=== PATIENT | male | born 1970 | race Caucasian/White ===

== ENCOUNTER 2021-12-12 22:39 | Inpatient (IN) ==
[2021-12-12] MEDS ORDERED: ONDANSETRON INJ 2 MG/ML 2 ML VIAL IV STA (22:54)
[2021-12-12] MEDS ORDERED: FAMOTIDINE 20MG IV PUSH 20 MG/5 ML SYR IV STA (22:54)
[2021-12-12] MEDS ORDERED: GI COCKTAIL ED USE PO ONE (22:54)
[2021-12-12] MEDS ORDERED: SODIUM CHLORIDE 0.9% 1000ML 1,000 ML IV SCH (23:00)
[2021-12-12 23:15] LABS: Basophils # (auto) 0.03 K/uL (0-0.2); Basophils % (auto) 0.2 %; Eosinophils # (auto) 0.18 K/uL (0-0.5); Eosinophils % (auto) 1.5 %; Hemoglobin 16.1 g/dL (14.0-18.0); Immature Granulocytes # (auto) 0.02 K/uL (0.00-0.02); Immature Granulocytes % (auto) 0.2 %; Lymphocytes # (auto) 1.83 K/uL (1.2-3.4); Lymphocytes % (auto) 15.2 %; Mean Corpuscular Hemoglobin 31.8 pg (25-34); Mean Corpuscular Volume 90.7 fL (80-100); Mean Platelet Volume 10.4 fL (7.4-10.4); Monocytes # (auto) 1.33 K/uL (0.11-0.59); Neutrophils # (auto) 8.68 K/uL (1.4-6.5); Neutrophils % (auto) 71.9 %; Platelet Count 166 K/uL (130-400); RDW Coefficient of Variation 12.7 % (11.5-14.5); RDW Standard Deviation 42.1 fL (36.4-46.3); Red Blood Count 5.07 M/uL (4.7-6.1); White Blood Count 12.07 K/uL (4.8-10.8)
[2021-12-12] MEDS: MoRPHine SULFATE 4 MG/ML 1 ML CARP\\VIAL IV PRN (23:24)
[2021-12-12 23:33] LABS: INR 1.1 (0.9-1.1); Partial Thromboplastin Ratio 0.8; Partial Thromboplastin Time 23.3 Seconds (21.0-31.0); Prothrombin Time 11.4 Seconds (9.0-12.0)
[2021-12-12 23:55] LABS: Troponin I High Sensitivity 5.5 pg/ml (0-20)
[2021-12-12 23:58] LABS: BUN Creatinine Ratio 15.2 (10-20); Calcium 9.9 mg/dl (8.5-10.1); Creatinine Clr Calc Pharmacy 94.1 ml/min; Est GFR (African American) 87.7 ml/min; Est GFR (Non-African American) 75.7 ml/min
[2021-12-13 00:12] LABS: Albumin Globulin Ratio 1.4 (0.9-2); Albumin Level 4.6 gm/dl (3.4-5.0); Bilirubin,Total 0.9 mg/dl (0.2-1.0); Globulin 3.3 gm/dl (2.5-4.0); Magnesium 1.9 mg/dl (1.7-2.4); Total Protein 7.9 gm/dl (6.0-8.3)
[2021-12-13] MEDS: MoRPHine SULFATE 4 MG/ML 1 ML CARP\\VIAL IV PRN (00:28)
--- NOTE | 2021-12-13 01:30 | History & Physical Report ---
Date of Service December 13, 2021 Assessment & Plan (1) Acute pancreatitis: Plan: Dougie Croft is a 51yo male with PMHx significant for tobacco use disorder (~40 pack years, current), severe alcohol use disorder and vitamin D deficiency who presented to [facility] ED on 12/13 for worsening epigastric abdominal pain x3 days; will be admitted to the floor for acute pancreatitis. Acute Pancreatitis Lipase ~4000; CT A/P with evidence of mild pancreatitis per [facility] report. Given lack of clarity about current alcohol use, alcohol-induced pancreatitis is certainly a possibility. Also may be due to increased triglycerides. Appears to be first known episode based on patient's history. - received 1L NSS bolus in the ED; continue with LR @200cc/hr - several doses of Morphine 2mg IV without improvement in severe pain - will give Dilaudid 0.5mg IV x1 now - graduated pain regimen: Tylenol 1g IV Q8H (moderate pain); Dilaudid 0.5mg IV Q6H (severe pain) - check lipid profile in the AM, as well as A1c (given no PCP visit for several years and recent weight gain) Severe Alcohol Use Disorder Previously reports use of >12 pack beer per week as well as undefined amount of Whiskey. Initially reported quitting 3 years ago but later on in the interview mentioned that he had 1 beer yesterday. Then reported 1 beer per month of alcohol intake. Unclear of current alcohol use. Mildly hypertensive and borderline tachycardic, likely due to severe pain but may also be component of withdrawal. - BAL <10 on admission - AWSS protocol with IV Ativan - IV Thiamine/Folate - counseled on cessation - recommend close PCP f/u after discharge H/o Multisubstance Abuse/Overdose Denies current use. - UDS pending FEN/GI: NPO DVT Prophylaxis: Lovenox 40mg SQ QAM Code Status: full code Disposition: med/surg (2) Severe alcohol use disorder: (3) Cocaine abuse: History of Present Illness Chief Complaint: abdominal pain Primary Care Provider: Richy Mcgill DO Dougie Croft is a 51yo male with PMHx significant for tobacco use disorder (~40 pack years, current), severe alcohol use disorder and vitamin D deficiency who presented to [facility] ED on 12/13 for worsening epigastric abdominal pain radiating to upper back x3 days, with associated nausea. Patient denies previous episodes of similar symptoms in the past. Does admit to occasional heartburn which usually responds to TUMS or Pepcid. Of note patient has a history of severe alcohol use disorder although he reports that he "really cut down" ~3 years ago. Does admit to having 1 beer yesterday, although usually has only 1 beer per month nowadays. Also has previous history of cocaine and meth abuse but denies any drug use currently. Has a 40 pack year smoking history and currently smokes 1 pack per day. Does not take any medications besides for occasional Pepcid. Of note he has gained considerable weight over last 1-2 years and frequently has red meat; he did have a considerable amount of Bologna the day before his symptoms started. In the ED patient was mildly hypertensive and borderline tachycardic. Labs significant for elevated lipase 4661 and elevated amylase 1295, as well as WBC 12.07. BAL negative and no transaminitis. CT A/P with evidence of mild acute pancreatitis per [facility] report. In ED patient was given 1L NSS bolus as well as GI cocktail x1, Zofran 4mg IV x1 and Pepcid 20mg IV x1. Pain is still severe at 10/10 during my interview with the patient. Allergies Allergy/AdvReac Type Severity Reaction Status Date / Time isopropyl alcohol Allergy Unknown Unknown Verified 12/12/21 23:21 Home Medications Medication Instructions Recorded Confirmed Type No Known Home Medications 12/12/21 12/12/21 History Past Med/Surg History Medical History Cocaine abuse Polysubstance overdose Smoker Surgical History S/P appendectomy Social History Smoking Status: Heavy tobacco smoker Tobacco Type: Cigarettes Second Hand Exposure: No; Do You Dip or Chew Tobacco: No; Tobacco Cessation Education Requested by Patient: No Hx Alcohol Use: No Hx Substance Use: Yes Substance Use Type Other:: alcohol Preferred Language: [place] Tennis Professional Required: No Beliefs That Will Affect Care: None Current Living Situation: Spouse and Family Other Information That Helps Us Care for You: No Feels Safe at Home: Yes Safety Concerns: Feels Safe At This Time Review of Systems Review of Systems: All systems reviewed & are unremarkable except as noted in HPI & below Physical Exam Physical Exam: General: A&Ox3. In mild acute distress and grabbing at upper abdomen due to pain. HEENT: Atraumatic, normocephalic. Pulm: CTAB A&P. -wheezes, -rales, -rhonchi. Symmetrical chest rise. No increase work of breathing. No respiratory distress. Cardiac: RRR, -mrg. Radial pulses intact and symmetrical. Abdominal: soft, protuberant, significant epigastric tenderness without rebound or guarding. Negative [place] sign. Back: Negative House-Deras sign Skin: warm, dry, no rash Results & Data Results & Data ([facility]) Vital Signs (Past 12 Hours) Vital Signs Temp Pulse Resp BP Pulse Ox 12/12/21 22:54 96 12/12/21 22:40 36.8 C 97 H 22 153/105 H 96 Code Status & VTE Plan Code Status full code - discussed with patient Supervising Physician Co-Signing Physician Notes Patient seen and examined, chart reviewed, case discussed with Dr. Stacy and I agree with the assessment and plan as above. In brief, patient is a 51yo male presenting with severe epigastric abdominal pain x 3 days with nausea. Found to have elevated Amylase and Lipase, CT of the abdomen suspect for acute pancreatitis On exam he is afebrile, HD stable, uncomfortable secondary to abdominal pain but otherwise in NAD Skin - warm, dry, intact, no rashes/lesios HEENT - NC/AT, PERRL, MMM Heart - +BS, soft, NT/ND Lungs - CTA Abd - +BS, soft, tender in epigastrium and upper abdomen with voluntary guarding Ext - warm, well perfused Labs and images reviewed Assessment/plan Acute pancreatitis - no gallstones present on imaging. Patient denies heavy drinking but has history of frequent EtOH use in the past. Calium normal -Check triglycerides -IVF, pain management -Monitor for EtOH withdrawal symptoms -Remainder as above Resident Activity Tracking Resident Involvement: Resident Care Provided Care Provided: [facility] Medicine
[2021-12-13] MEDS ORDERED: HYDROmorphone INJ 0.5 MG/0.5 ML SYR IV STA ×3 (01:54→22:42)
--- NOTE | 2021-12-13 01:57 | Emergency Department Note ---
History of Present Illness General Chief complaint: Abdominal Pain Stated complaint: UPPER ABDOM PAIN Time Seen by Provider: 12/12/21 22:45 History of Present Illness Maximum Pain Intensity: 8 This is a 51-year-old male presenting to the emergency department for evaluation of epigastric abdominal pain the past 1 to 2 days. The patient states the pain is very sharp and will occasionally radiate into his back. He rates the pain an 8/10. He has not been able to eat or drink comfortably due to his symptoms. He is nauseated without vomiting. The patient does not typically follow with a primary care physician. He does have a past history of cocaine and methamphetamine abuse, as well as chronic alcohol use. The patient's discomfort does not seem to improve or worsen with position. He does have past surgical history of appendectomy years ago. Home Medications Medication Instructions Recorded Confirmed Type No Known Home Medications 12/12/21 12/12/21 History Allergies Allergy/AdvReac Type Severity Reaction Status Date / Time isopropyl alcohol Allergy Unknown Unknown Verified 12/12/21 23:21 Past Med/Surg History Medical History Cocaine abuse Polysubstance overdose Smoker Surgical History S/P appendectomy Social History Smoking Status: Current every day smoker Tobacco Type: Cigarettes Preferred Language: French Feels Safe at Home: Yes Review of Systems A total of 10 systems reviewed and were otherwise negative Physical Exam Vital Signs Vital Signs - 24 hr 12/12/21 22:40 12/12/21 22:54 Temperature 36.8 C Temperature Source Temporal Artery Scan Pulse Rate 97 H Respiratory Rate 22 Respiratory Effort / Characteristics Non-Labored Spontaneous Respiratory Depth Normal Blood Pressure 153/105 H Blood Pressure Mean 121 Pulse Oximetry 96 96 Oxygen Delivery Method Room Air Room Air Sepsis New/Unexplained Change in Mental Status N/A Sepsis Action Taken by Nursing No Action Required VITALS: Vitals are noted on the nurse's note and reviewed by myself. Vital signs stable. GENERAL: Well-developed, well-nourished, white male who is in moderate discomfort secondary to his stated complaint. He has having difficulty getting comfort in the ER bed. He is overall cooperative. HEAD: Normocephalic atraumatic. HEART: Regular rate and rhythm without murmurs gallops or rubs. LUNGS: Clear to auscultation bilaterally without wheezes, rales or rhonchi. No retractions or accessory muscle use. ABDOMEN: Positive normal bowel sounds x 4. Soft with epigastric and left upper quadrant tenderness. No rebound or guarding. No CVA tenderness. MUSCULOSKELETAL: No muscle atrophy, erythema, or edema noted. Full range of motion in all extremities. NEURO: Patient was alert and oriented to person place and time. CN II through XII grossly intact. Course Administered Medications Morphine Sulfate (Morphine Sulfate 4 Mg/Ml 1 Ml Carp\Vial) 4 mg IV Q30M PRN PRN Reason: Pain Stop: 12/26/21 22:53 Last Admin: 12/13/21 00:28 Dose: 4 mg Documented by: [id number] Admin: 12/12/21 23:24 Dose: 4 mg Documented by: [id number] Discontinued Medications Al Hydrox/Mg Hydrox/Simethicone (Gi Cocktail Ed Use) 1 dose PO ONE ONE Stop: 12/12/21 22:55 Last Admin: 12/12/21 23:24 Dose: 1 dose Documented by: [id number] Sodium Chloride (Nss 1000ml) 1,000 mls @ 999 mls/hr IV .Q1H1M RENAE Stop: 12/13/21 00:00 Last Infusion: 12/13/21 00:43 Dose: 0 mls/hr Documented by: [id number] Admin: 12/12/21 23:23 Dose: 999 mls/hr Documented by: [id number] Famotidine (Pepcid 20mg Iv Push) 20 mg in 5 mls @ 2.5 mls/min IV NOW STA Stop: 12/12/21 22:55 Last Admin: 12/12/21 23:24 Dose: 2.5 mls/min Documented by: [id number] Ondansetron HCl (Ondansetron Inj 2 Mg/Ml 2 Ml Vial) 4 mg IV NOW STA Stop: 12/12/21 22:55 Last Admin: 12/12/21 23:24 Dose: 4 mg Documented by: [id number] Medical Decision Making Differential Diagnosis Differential diagnosis: Etiologies such as biliary colic, cholecystitis, hepatitis, pancreatitis, cardiac disease, pancreatitis, gastritis, peptic ulcer disease, appendicitis, cystitis, diverticulitis, mesenteric ischemia, inflammatory bowel disease, ileus, bowel obstruction, testicular/adnexal torsion, aortic pathology, shingles, as well as others were considered Laboratory Data Result diagrams: 12/12/21 23:05 12/12/21 23:05 Lab Results 12/12/21 12/12/21 12/12/21 Range/Units 23:05 23:05 23:05 WBC 12.07 H (4.8-10.8) K/uL RBC 5.07 (4.7-6.1) M/uL Hgb 16.1 (14.0-18.0) g/dL Hct 46.0 (42-52) % MCV 90.7 (80-100) fL MCH 31.8 (25-34) pg MCHC 35.0 (32-36) g/dL RDW Std Deviation 42.1 (36.4-46.3) fL RDW Coeff of Yennifer 12.7 (11.5-14.5) % Plt Count 166 (130-400) K/uL MPV 10.4 (7.4-10.4) fL Immature Gran % (Auto) 0.2 % Neut % (Auto) 71.9 % Lymph % (Auto) 15.2 % [place] % (Auto) 11.0 % Eos % (Auto) 1.5 % Baso % (Auto) 0.2 % Neut # (Auto) 8.68 H (1.4-6.5) K/uL Lymph # (Auto) 1.83 (1.2-3.4) K/uL [place] # (Auto) 1.33 H (0.11-0.59) K/uL Eos # (Auto) 0.18 (0-0.5) K/uL Baso # (Auto) 0.03 (0-0.2) K/uL Immature Gran # (Auto) 0.02 (0.00-0.02) K/uL PT 11.4 (9.0-12.0) Seconds INR 1.1 (0.9-1.1) APTT 23.3 (21.0-31.0) Seconds PTT Ratio 0.8 Sodium 138 (136-145) mmol/L Potassium 4.0 (3.5-5.1) mmol/L Chloride 104 (98-107) mmol/L Carbon Dioxide 25 (21-32) mmol/L Anion Gap 9 (3-11) BUN 17 (6-23) mg/dl Creatinine 1.12 (0.6-1.4) mg/dl Est Cr Clr Drug Dosing 94.1 ml/min Est GFR ( Amer) 87.7 ml/min Est GFR (Non-Af Amer) 75.7 ml/min BUN/Creatinine Ratio 15.2 (10-20) Glucose 128 H (70-99(Fasting)) mg/dl Calcium 9.9 (8.5-10.1) mg/dl Magnesium 1.9 (1.7-2.4) mg/dl Total Bilirubin 0.9 (0.2-1.0) mg/dl AST 29 (13-39) U/L ALT 37 (7-52) U/L Alkaline Phosphatase 71 (34-104) U/L Troponin I High Sens 5.5 (0-20) pg/ml Total Protein 7.9 (6.0-8.3) gm/dl Albumin 4.6 (3.4-5.0) gm/dl Globulin 3.3 (2.5-4.0) gm/dl Albumin/Globulin Ratio 1.4 (0.9-2) Amylase 1295 H (25-115) U/L Lipase 4661 H (11-82) U/L Ethyl Alcohol mg/dL (<10.0) mg/dl SARS-CoV-2, RNA, NAAT (NEGATIVE) 12/12/21 12/13/21 Range/Units 23:05 00:32 WBC (4.8-10.8) K/uL RBC (4.7-6.1) M/uL Hgb (14.0-18.0) g/dL Hct (42-52) % MCV (80-100) fL MCH (25-34) pg MCHC (32-36) g/dL RDW Std Deviation (36.4-46.3) fL RDW Coeff of Yennifer (11.5-14.5) % Plt Count (130-400) K/uL MPV (7.4-10.4) fL Immature Gran % (Auto) % Neut % (Auto) % Lymph % (Auto) % [place] % (Auto) % Eos % (Auto) % Baso % (Auto) % Neut # (Auto) (1.4-6.5) K/uL Lymph # (Auto) (1.2-3.4) K/uL [place] # (Auto) (0.11-0.59) K/uL Eos # (Auto) (0-0.5) K/uL Baso # (Auto) (0-0.2) K/uL Immature Gran # (Auto) (0.00-0.02) K/uL PT (9.0-12.0) Seconds INR (0.9-1.1) APTT (21.0-31.0) Seconds PTT Ratio Sodium (136-145) mmol/L Potassium (3.5-5.1) mmol/L Chloride (98-107) mmol/L Carbon Dioxide (21-32) mmol/L Anion Gap (3-11) BUN (6-23) mg/dl Creatinine (0.6-1.4) mg/dl Est Cr Clr Drug Dosing ml/min Est GFR ( Amer) ml/min Est GFR (Non-Af Amer) ml/min BUN/Creatinine Ratio (10-20) Glucose (70-99(Fasting)) mg/dl Calcium (8.5-10.1) mg/dl Magnesium (1.7-2.4) mg/dl Total Bilirubin (0.2-1.0) mg/dl AST (13-39) U/L ALT (7-52) U/L Alkaline Phosphatase (34-104) U/L Troponin I High Sens (0-20) pg/ml Total Protein (6.0-8.3) gm/dl Albumin (3.4-5.0) gm/dl Globulin (2.5-4.0) gm/dl Albumin/Globulin Ratio (0.9-2) Amylase (25-115) U/L Lipase (11-82) U/L Ethyl Alcohol mg/dL < 10.0 (<10.0) mg/dl SARS-CoV-2, RNA, NAAT NEGATIVE (NEGATIVE) Imaging Data Radiologist's Impression: Preliminary Findings Only See Final Report For Complete Findings CT ABDOMEN & PELVIS Without Contrast: Granuloma at the left lung base. Heart intact. Fatty liver. Gallbladder intact. Mild inflammatory changes around the pancreas. Spleen, adrenals and kidneys are intact. Bladder decompressed. Bowel loops intact. Appendix not seen. No adenopathy, free fluid or free air. Minimal atherosclerosis. No acute findings in the lungs. Impression: Mild acute pancreatitis. Radiologist:Hunter Chambers M.D. [facility] Narrative Physical exam and history were performed. Nursing notes, EMR, and Medication List were personally reviewed. Patient appears to have upper abdominal pain bringing him to the ER. He is quite tender and uncomfortable appearing on exam. IV access was established and labs were obtained. He was hydrated with normal saline and given IV morphine and IV Zofran for comfort. Patient sent to CT scan for further evaluation of his symptoms. Patient's blood work is as above and was reviewed. He does have a slightly elevated white count of 12,000. He does not have significant anemia or gross electrolyte imbalance. Troponin x1 is negative. His amylase is nearly 1300 and lipase is [address] scan was reviewed by myself and radiology also suggesting acute pancreatitis. His alcohol is negative. Urinalysis and drug abuse screen is pending at the time of this dictation. His COVID testing is negative. Patient did require multiple doses of IV morphine and continues to rate his pain very high. He does not seem well for discharge home. Case was discussed with the on-call [facility] hospitalist team who will evaluate patient here in the ER. Please see their dictation for further patient course, plan, and dispositio n. The chart was completed utilizing [employer] Speech Voice Recognition Software. Grammatical errors, random word insertions, pronoun errors, and incomplete sentences are an occasional consequence of this system due to software limitations, ambient noise, and hardware issues. Any formal questions or concerns about the content, text, or information contained within the body of this dictation should be directly addressed to the provider for clarification. . Impression & Plan Acute pancreatitis, Acute upper abdominal pain Discharge Plan Visit Data Chief Complaint: Abdominal Pain Stated Complaint: UPPER ABDOM PAIN ED Provider: Margarito Olivares ED Midlevel Provider: Nicholas Krishnan Discharge Problem: Acute pancreatitis, Acute upper abdominal pain Forms Stand Alone Forms: My [facility] [employer] Prescriptions Prescriptions: No Action No Known Home Medications RF: 0 Referrals Referrals: Richy Mcgill DO [Primary Care Provider] -
--- NOTE | 2021-12-13 02:04 | Billing Data ---
Date of Service December 13, 2021 Coding Level of Care Code 21121 Initial Inpt Care Lvl 2
[2021-12-13] MEDS ORDERED: HYDROmorphone INJ 0.5 MG/0.5 ML SYR ONE (02:06)
[2021-12-13] MEDS ORDERED: ACETAMINOPHEN 1000 MG/100 ML IV IV PRN (04:26)
[2021-12-13] MEDS ORDERED: LORazepam 2 MG/1 ML VIAL IV PRN (04:26)
[2021-12-13] MEDS: LACTATED RINGER'S 1,000 ML IV SCH ×4 (04:36→20:04)
[2021-12-13] MEDS: ACETAMINOPHEN 1,000 MG/100 ML VIAL IV PRN ×3 (05:06→23:05)
[2021-12-13] MEDS: HYDROmorphone INJ 0.5 MG/0.5 ML SYR IV PRN ×3 (06:01→18:17)
[2021-12-13 06:31] LABS: Basophils # (auto) 0.03 K/uL (0-0.2); Basophils % (auto) 0.3 %; Eosinophils # (auto) 0.09 K/uL (0-0.5); Eosinophils % (auto) 0.8 %; Hematocrit (blood only) 44.9 % (42-52); Hemoglobin 15.7 g/dL (14.0-18.0); Immature Granulocytes # (auto) 0.04 K/uL (0.00-0.02); Immature Granulocytes % (auto) 0.3 %; Lymphocytes # (auto) 1.21 K/uL (1.2-3.4); Lymphocytes % (auto) 10.5 %; Mean Corpuscular Volume 91.4 fL (80-100); Mean Platelet Volume 10.4 fL (7.4-10.4); Monocytes # (auto) 0.98 K/uL (0.11-0.59); Monocytes % (auto) 8.5 %; Neutrophils # (auto) 9.17 K/uL (1.4-6.5); Neutrophils % (auto) 79.6 %; Platelet Count 155 K/uL (130-400); RDW Coefficient of Variation 12.8 % (11.5-14.5); RDW Standard Deviation 42.5 fL (36.4-46.3); Red Blood Count 4.91 M/uL (4.7-6.1); White Blood Count 11.52 K/uL (4.8-10.8)
[2021-12-13 07:16] LABS: BUN Creatinine Ratio 16.7 (10-20); Calcium 9.3 mg/dl (8.5-10.1); Chol HDL Ratio 3.6 (0-5); Est GFR (African American) 121.1 ml/min; Est GFR (Non-African American) 104.5 ml/min; Magnesium 1.9 mg/dl (1.7-2.4)
[2021-12-13] MEDS: ENOXAPARIN INJ 40 MG/0.4 ML SYR SQ SCH (08:14)
[2021-12-13] MEDS: THIAMINE HCL 100 MG in SYRINGE 9 ML IV SCH (08:15)
[2021-12-13] MEDS: FOLIC ACID 1 MG TAB PO SCH (08:15)
[2021-12-13] MEDS: ONDANSETRON INJ 2 MG/ML 2 ML VIAL IV PRN (08:20)
[2021-12-13 08:38] LABS: Amphetamines+Metham, Urine Neg (Neg); Barbiturates, Urine Neg (Neg); Benzodiazepine, Urine Neg (Neg); Cocaine, Urine Neg (Neg); MDMA (Ecstacy), Urine Neg (Neg); Methadone, Urine Neg (Neg); Opiate, Urine Pos (Neg); Phencyclidine, Urine Neg (Neg)
--- NOTE | 2021-12-13 08:43 | CT Scan Report ---
CT abd pelvis wo con CLINICAL HISTORY: upper abd pain. no appdx. Reported nausea, vomiting and diarrhea for 3 days COMPARISON STUDY: No previous studies for comparison. CT DOSE: 989.91 mGy.cm TECHNIQUE: Standard CT of the Abdomen and Pelvis was performed without IV contrast. The patient did not receive oral contrast. A dose lowering technique was utilized adhering to the principles of IVET Santos. FINDINGS: Lung base: The lung bases are clear. There is a calcified granuloma the left lung base. Abdominal cavity: There is no evidence for abdominal mass, adenopathy or ascites. Liver: There is mild hepatomegaly with diffuse fatty infiltration of the liver.. Spleen: The spleen is homogeneous in attenuation on these limited noncontrast images. There is mild s plenomegaly. Pancreas: The pancreas is homogeneous in attenuation on these limited noncontrast images. However, th ere is mild peripancreatic inflammatory changes characteristic of mild acute pancreatitis. No peripan creatic fluid collections are seen. Gall Bladder: The gallbladder is well distended with no evidence for cholelithiasis, wall thickening or pericholecystic edema.. Adrenal glands: The adrenal glands are normal in size and attenuation on these limited noncontrast im ages. Kidneys: The kidneys are homogeneous in attenuation on these limited noncontrast images. There is no evidence for gross renal mass, calculus or hydronephrosis bilaterally. Bowel: The bowel loops are normally placed within the abdomen and pelvis without evidence for dilatat ion or obstruction. There is no evidence for mass lesion. There are no inflammatory changes present. There is no evidence for free air. Bladder: There is no evidence for focal bladder wall thickening, calculus or diverticulum. : There is no evidence for pelvic mass or adenopathy. Vasculature: There is no evidence for focal aneurysmal dilatation of the abdominal aorta. Osseous structures: There is no acute osseous pathology. Degenerative changes are present involving t he lower lumbar spine. IMPRESSION: 1. Mild acute pancreatitis. 2. Fatty infiltration of liver with mild hepatosplenomegaly. ACT 112: Negative or not required by law. Electronically signed by: Ricardo Dominguez M.D. 12/13/2021 8:41 AM
--- NOTE | 2021-12-13 14:48 | Hospitalist Progress Note ---
Date of Service December 13, 2021 Assessment & Plan (1) Acute pancreatitis: Plan: Dougie Croft is a 51yo male with PMHx significant for tobacco use disorder (~40 pack years, current), severe alcohol use disorder and vitamin D deficiency who presented to [facility] ED on 12/13 for worsening epigastric abdominal pain x3 days; admitted to the floor for acute pancreatitis. Acute Pancreatitis -Lipase 4660, amylase 1300, triglycerides wnl, liver enzymes + bilirubin + alkaline phosphatase wnl, lipid profile wnl -A1C pending -CTAP- mild acute pancreatitis, fatty infiltration of liver -Suspect pancreatitis most likely due to alcohol-induced injury, gallstone pancreatitis also possible given pt's report of previous biliary colic-like symptoms exacerbated by fatty foods -Pain control: PRN Dilaudid, standing Tylenol q8h -Zofran PRN -Continue IVF, may advance pt to clear liquids for dinner if improving pain and abdominal exam -CBC, CMP in AM Dyspnea -O2 saturating well on RA, clear lung exam -Is current smoker, 1 pack per day -Suspect dyspnea is due to referred pain from his pancreatitis -Continue monitoring, pursue CXR if pt develops O2 requirement or lack of improvement despite pancreatitis improving Severe Substance Use Disorder -Smoking history as above. Unclear if alcohol consumption history is reliable given reported first drink in last 3 years was day prior -UDS- +opiates, negative THC, PCP, amphetamines, benzodiazepines, cocaine. BAL neg on admission -AWSS protocol + Ativan for withdrawal. BP and HR stable, does not appear to be in withdrawal currently -Continue thiamine and folate supplementation -Address JOHNNIE with PCP on outpatient basis after discharge- pt has not seen PCP in few years FEN/GI: NPO pending abdominal exam DVT Prophylaxis: Lovenox 40mg SQ QAM Code Status: full code Disposition: med/surg (2) Severe alcohol use disorder: (3) Cocaine abuse: Admission and Anticipated Discharge Date Admission Date: December 13, 2021 Supervising Physician Co-Signing Physician Notes Patient seen and examined with PGY-1 Dr. Srivastava. Agree with history, exam findings, assessment and plan of care as outlined. Mr. Croft is a 51 year old male with history of prior alcohol use disorder, substance use disorder admitted with acute pancreatitis. Today, he continues to have abdominal pain but no nausea or vomiting. Most of his pain is in the upper abdomen, but does have some pain in the lower abdomen as well. Does note that he does often have upper abdominal pain with eating greasy, fatty foods. Sometimes also experiences bloating and reflux symptoms with those foods as well. VS and nursing notes reviewed. Nontoxic appearing Heart with regular rate and rhythm. No lower extremity edema. Lungs are clear to ausculation throughout. Abdomen is soft. Tenderness in the epigastric area + guarding. Labs and imaging reviewed. 1. acute pancreatitis. elevated TGs, ?recent ETOH use. Lipase ~[address] findings consistent with mild pancreatitis. IVFs, pain control with IV Tylenol and Dilaudid. 2. ETOH use. BAL<10. AWSS with Ativan. 3. substance use disorder. UDS on admission positive for amphetamine, cocaine, cannabis and MDMA. Dispo: pending clinical improvement. Subjective Pt still reporting abdominal pain on evaluation- 03/03 severity. States he did receive IV Dilaudid a few hours prior which helped him sleep. Notes pain still radiates to back. Was also nauseous earlier but received Zofran which quelled his nausea. Currently not endorsing any appetite. Denies fever, chills, vomiting. Does state he has some difficulty taking in breaths which causes his abdominal pain to worsen and travel upwards to his chest. Review of Systems Review of Systems: Per Subjective Physical Exam Physical Exam: General: No acute distress, mildly uncomfortable appearing HEENT: NCAT, anicteric sclerae Pulm: CTAB, no increased work of breathing, no crackles or wheezes Cardiac: RRR, normal S1, S2, no murmurs Abdominal: soft, slightly distended beyond usual, diffuse tenderness to light touch most pronounced in RUQ + epigastrium + LUQ, no rebound or guarding, bowel sounds normoactive Skin: warm, dry, no rash, no jaundice Results & Data Results & Data ([facility]) Vital Signs (Past 12 Hours) Vital Signs Temp Pulse Resp BP Pulse Ox 12/13/21 12:36 36.8 C 94 H 18 142/83 H 95 12/13/21 08:19 36.7 C 76 16 165/80 H 95 12/13/21 04:41 36.5 C 93 H 16 169/99 H 94 Resident Activity Tracking Resident Involvement: Resident Care Provided Care Provided: Adult [facility] Medicine
--- NOTE | 2021-12-13 15:02 | Electrocardiogram Report ---
Test Reason : Blood Pressure : / mmHG Vent. Rate : 089 BPM Atrial Rate : 089 BPM P-R Int : 146 ms QRS Dur : 082 ms QT Int : 332 ms P-R-T Axes : 076 063 052 degrees QTc Int : 403 ms Normal sinus rhythm Normal ECG When compared with ECG of 01-FEB-2018 17:09, QT has shortened Confirmed by Jason Henderson ([id number]) on 12/13/2021 3:02:33 PM Referred By: REFERRED SELF Confirmed By:Jason Henderson
[2021-12-14] MEDS: LACTATED RINGER'S 1,000 ML IV SCH ×7 (01:15→22:30)
[2021-12-14] MEDS: ONDANSETRON INJ 2 MG/ML 2 ML VIAL IV PRN ×3 (04:56→19:33)
[2021-12-14] MEDS: HYDROmorphone INJ 0.5 MG/0.5 ML SYR IV PRN ×5 (04:56→22:30)
[2021-12-14 06:00] LABS: Hematocrit (blood only) 45.7 % (42-52); Hemoglobin 16.1 g/dL (14.0-18.0); Mean Corpuscular Hemoglobin 32.4 pg (25-34); Mean Corpuscular Hgb Conc 35.2 g/dL (32-36); Mean Platelet Volume 10.4 fL (7.4-10.4); Platelet Count 140 K/uL (130-400); RDW Coefficient of Variation 12.3 % (11.5-14.5); RDW Standard Deviation 41.7 fL (36.4-46.3); Red Blood Count 4.97 M/uL (4.7-6.1); White Blood Count 15.04 K/uL (4.8-10.8)
[2021-12-14 06:23] LABS: Albumin Globulin Ratio 1.3 (0.9-2); BUN Creatinine Ratio 11.1 (10-20); Bilirubin,Total 1.4 mg/dl (0.2-1.0); Calcium 9.2 mg/dl (8.5-10.1); Creatinine Clr Calc Pharmacy 146.2 ml/min; Est GFR (African American) 125.2 ml/min; Globulin 3.2 gm/dl (2.5-4.0); Potassium 3.7 mmol/L (3.5-5.1); Total Protein 7.2 gm/dl (6.0-8.3)
[2021-12-14 07:41] LABS: Estimated Average Glucose 134 mg/dl; Hemoglobin A1C 6.3 % (4.5-5.6)
[2021-12-14] MEDS: ENOXAPARIN INJ 40 MG/0.4 ML SYR SQ SCH (09:07)
[2021-12-14] MEDS: FOLIC ACID 1 MG TAB PO SCH (09:08)
[2021-12-14] MEDS: ACETAMINOPHEN 1,000 MG/100 ML VIAL IV PRN ×2 (09:14→18:07)
[2021-12-14] MEDS: THIAMINE HCL 100 MG in SYRINGE 9 ML IV SCH (09:17)
--- NOTE | 2021-12-14 11:18 | Hospitalist Progress Note ---
Assessment & Plan (1) Acute pancreatitis: Plan: Patient is a 51 y/o male with a history of tobacco use disorder and alcohol use disorder who presented to [facility] ED on 12/13 for worsening epigastric pain, admitted for evaluation and management of acute pancreatitis. 1. Acute Pancreatitis -Amylase 1295, Lipase 4661, WBC 15.04, Total bili 1.4, triglycerides wnl, liver enzymes and alkaline phosphatase wnl, lipid profile wnl -Ct/abd pelvis confirmed mild acute pancreatitis, fatty infiltration of liver -Suspect pancreatitis is likely secondary to alcohol use. Considered gallstone pancreatitis, unlikely due to liver enzymes and alkaline phosphatase wnl. -Pt remains hemodynamically stable. Worsening abd pain likely due to acute inflammatory infiltration/state. -Pain control: Dilaudid q3h prn, standing iv Tylenol -Zofran PRN -Continue IVF with LR, increased from 200-250mls/ghr -Continue to monitor for worsening symptoms. Will consider repeat imaging to r/o necrotizing pancreatitis if symptoms progress despite changes in pain/fluid management. 2. Dyspnea -O2 sat. 95 on room air. Normal lung exam. -Current smoker, 1 pack per day. -Dyspnea likely due to referred pain from pancreatitis. Consider COPD 2/2 to current tobbaco used and longstanding hx of use. -Continue to monitor. Consider CXR if pt develops O2 requirement or lack of improvement as pancreatitis improves. 3. Substance use disorder -Current tobacco use. Known history of severe alcohol use. Unclear if alcohol consumption history is reliable given inconsistence in date of last drink. -UDS: +opiates, negative THC, PCP, amphetamines, benzodiazepines, cocaine. BAL neg on admission. -Vitals notable for tachycardia. Pt does not appear to be in withdrawal currently. No tremors or agitation appreciated. -Ativan prn. -Continue thiamine and folate supplementation FEN/GI: NPO DVT Prophylaxis: Lovenox 40mg SQ QAM Code Status: full code (2) Dyspnea: (3) Substance use disorder: Admission and Anticipated Discharge Date Admission Date: December 13, 2021 Supervising Physician Co-Signing Physician Notes I personally examined the patient and verified all watts points of history and exam, discussed case, and agree with decision making with Karlie GRAY still a lot of pain. pain meds seem to help but then wear off fairly quickly vitals noted nad laying in bed w arms behind head. heent nc at mmm. breathing unlabored no accessory muscles good effort skin no rashes no pallor or icterus neuro no focal deficits. abd soft nd (+) epigastric tenderness fairly exquisitely but no guarding no rebound no rigidity, mild/mod distended acute pancreatitis -fluids, pain control, nausea control, clear liquids, time -EtOH vs idiopathic as most likely culprits (TG's low, and no elevation of AST/ALT/alk phos and no stone/ductal dilation on imaging to suggest stone disease) questionable ongoing EtOH abuse -previously heavy, now really now clear. thiamine, folate. no s/s withdrawal at this time (tachycardia appears to relate to pain/pancreatitis -- not shaky, does not appear anxious, etc) DVT proph - lovenox otherwise as above Subjective Patient reports worsening abdominal today compared to yesterday. Pain described as a a sharp shooting pain to the back associated with nausea w/o vomiting. He had difficulty sleeping last night due to pain and nausea. Symptoms are somewhat relieved with Zofran and Dilaudid but returns soon after. He also reports chest pain and some difficulty thing. Review of Systems Constitutional: no fever and no increased appetite Respiratory: + dyspnea Cardiovascular: + chest pain; no edema Gastrointestinal: + abdominal pain; no vomiting Musculoskeletal: + back pain Physical Exam Constitutional: WD/WN, vitals as above Respiratory: normal respiratory effort, lungs clear to auscultation Cardiovascular: Rate/Rhythm: regular rhythm and + tachycardic Heart Sounds: normal S1 and normal S2 Gastrointestinal (Abdomen): Inspection/Auscultation: + abdomen distended and normal bowel sounds Percussion/Palpation: + abdomen tender and abdomen soft Genitourinary: + CVA tenderness Results & Data Results & Data ([facility]) Vital Signs (Past 12 Hours) Vital Signs Temp Pulse Resp BP BP Pulse Ox 12/14/21 08:00 37.2 C 110 H 18 175/98 H 95 12/14/21 00:01 37.1 C 95 H 16 149/82 H 95
--- NOTE | 2021-12-14 12:58 | Billing Data ---
Date of Service December 14, 2021 Coding Level of Care Code 12657 Subseq Hosp Care Lvl 3
[2021-12-15] MEDS: HYDROmorphone INJ 0.5 MG/0.5 ML SYR IV PRN ×7 (01:30→20:16)
[2021-12-15] MEDS ORDERED: FAMOTIDINE 20 MG in SYRINGE 3 ML IV STA (02:36)
[2021-12-15] MEDS: LACTATED RINGER'S 1,000 ML IV SCH ×6 (02:37→22:56)
[2021-12-15] MEDS: ACETAMINOPHEN 1,000 MG/100 ML VIAL IV PRN (02:38)
[2021-12-15] MEDS: ONDANSETRON INJ 2 MG/ML 2 ML VIAL IV PRN (07:43)
[2021-12-15] MEDS: ENOXAPARIN INJ 40 MG/0.4 ML SYR SQ SCH (07:47)
[2021-12-15] MEDS: THIAMINE HCL 100 MG in SYRINGE 9 ML IV SCH (07:47)
[2021-12-15] MEDS: FOLIC ACID 1 MG TAB PO SCH (07:48)
--- NOTE | 2021-12-15 08:23 | Hospitalist Progress Note ---
Date of Service December 15, 2021 Assessment & Plan (1) Acute pancreatitis: Plan: Patient is a 51 y/o male with a history of tobacco use disorder and alcohol use disorder who presented to [facility] ED on 12/13 for worsening epigastric pain, admitted for evaluation and management of acute pancreatitis. 1. Acute Pancreatitis -Secondary to alcohol use. -Labs: WBC 15.47, Total bili 1.0, triglycerides wnl, liver enzymes and alkaline phosphatase wnl, lipid profile wnl -Ct/abd pelvis confirmed mild acute pancreatitis, fatty infiltration of liver. -Pt remains hemodynamically stable. -Advance diet to Clear Liquid -Pain control: Dilaudid q3h prn -Zofran PRN -Continue IVF with LR 250mls/qhr -Continue to monitor for worsening symptoms. Will consider repeat imaging to r/o necrotizing pancreatitis if lack of improvement despite current pain/ fluid management. 2. Dyspnea -Symptoms are improving. Dyspnea likely due to referred pain from pancreatitis. -O2 sat. 95 on room air. Normal lung exam. -Current smoker, 1 pack per day. -Continue to monitor. Consider CXR if pt develops O2 requirement or lack of improvement/worsening symptoms as pancreatitis improves. 3. Substance use disorder -Current tobacco use. Known history of severe alcohol use. Unclear if alcohol consumption history is reliable given inconsistence in date of last drink. -UDS: +opiates, negative THC, PCP, amphetamines, benzodiazepines, cocaine. BAL neg on admission. -Vitals notable for tachycardia. Pt does not appear to be in withdrawal currently. No tremors or agitation appreciated. -Ativan prn. -Continue thiamine and folate supplementation FEN/GI: Clear Liquids DVT Prophylaxis: Lovenox 40mg SQ QAM Code Status: full code (2) Dyspnea: (3) Substance use disorder: Admission and Anticipated Discharge Date Admission Date: December 13, 2021 Supervising Physician Co-Signing Physician Notes I personally examined the patient and verified all watts points of history and exam, discussed case, and agree with decision making with Karlie GRAY pain imporving, bloating somewhat worse. wondered if EtOH could do it - notes that he doesn't at all drink like he used to, but did have 12 pack over an unspecified period of time recently vitals noted nad laying in bed w arms behind head. heent nc at mmm. breathing unlabored no accessory muscles good effort skin no rashes no pallor or icterus neuro no focal deficits. abd soft nd mild epigastric tenderness far better than yesterday, still no guarding no rebound no rigidity, mild/mod distended acute pancreatitis -fluids, pain control, nausea control, clear liquids, time -EtOH vs idiopathic as most likely culprits (TG's low, and no elevation of AST/ALT/alk phos and no stone/ductal dilation on imaging to suggest stone disease) - discussed abstinence to reduce chance of recurrence -pain seems to be shifting from pancreatic to intestinal - d/w him re dilauded w caution (try to only utilize for epigastric (ie "pancreatic" pain) to minimize chance of narcotic ileus. add miralax questionable ongoing EtOH abuse -previously heavy, now really not clear. thiamine, folate. still no s/s withdrawal at this time (tachycardia appears to relate to pain/pancreatitis -- not shaky, does not appear anxious, etc) DVT proph - lovenox otherwise as above Subjective No acute changes overnight. Patient reports feeling a lot better. He still has some discomfort and abdominal pain, but feels like pain is relieving current pain control regimen with Dilaudid. He had some nausea last night that was relived with Zofran, allowing him to be able to rest. Yesterday he reported some chest pain and shortness of breath, today he feels that those symptoms have since improved. He does have a headache this morning but feels okay otherwise. He does have an appetite today and wants to try to eat some soup. Review of Systems Constitutional: no fever and no chills Respiratory: no dyspnea Cardiovascular: no chest pain Gastrointestinal: + abdominal pain and + bloating Physical Exam Constitutional: WD/WN, vitals as above Respiratory: normal respiratory effort, lungs clear to auscultation Cardiovascular: Rate/Rhythm: regular rhythm and + tachycardic Heart Sounds: normal S1 and normal S2 Gastrointestinal (Abdomen): Inspection/Auscultation: + abdomen distended and normal bowel sounds Percussion/Palpation: + abdomen tender and abdomen soft Less tenderness compared to yest. Results & Data Results & Data ([facility]) Vital Signs (Past 12 Hours) Vital Signs Temp Pulse Resp BP BP Pulse Ox 12/15/21 07:14 37.6 C H 104 H 18 166/96 H 95 12/14/21 22:37 37.3 C 104 H 16 169/97 H 95
[2021-12-15 09:51] LABS: Basophils # (auto) 0.02 K/uL (0-0.2); Basophils % (auto) 0.1 %; Eosinophils # (auto) 0.07 K/uL (0-0.5); Eosinophils % (auto) 0.5 %; Hematocrit (blood only) 43.7 % (42-52); Hemoglobin 15.1 g/dL (14.0-18.0); Immature Granulocytes # (auto) 0.03 K/uL (0.00-0.02); Immature Granulocytes % (auto) 0.2 %; Lymphocytes # (auto) 1.37 K/uL (1.2-3.4); Lymphocytes % (auto) 8.9 %; Mean Corpuscular Hemoglobin 31.6 pg (25-34); Mean Corpuscular Hgb Conc 34.6 g/dL (32-36); Mean Corpuscular Volume 91.4 fL (80-100); Mean Platelet Volume 10.5 fL (7.4-10.4); Monocytes % (auto) 8.4 %; Neutrophils # (auto) 12.68 K/uL (1.4-6.5); Neutrophils % (auto) 81.9 %; Platelet Count 134 K/uL (130-400); RDW Coefficient of Variation 12.4 % (11.5-14.5); RDW Standard Deviation 41.6 fL (36.4-46.3); Red Blood Count 4.78 M/uL (4.7-6.1); White Blood Count 15.47 K/uL (4.8-10.8)
[2021-12-15 10:09] LABS: Albumin Globulin Ratio 1.2 (0.9-2); Albumin Level 3.6 gm/dl (3.4-5.0); BUN Creatinine Ratio 12.9 (10-20); Calcium 8.7 mg/dl (8.5-10.1); Creatinine Clr Calc Pharmacy 150.4 ml/min; Est GFR (African American) 126.6 ml/min; Est GFR (Non-African American) 109.3 ml/min; Globulin 3.1 gm/dl (2.5-4.0); Potassium 3.6 mmol/L (3.5-5.1); Total Protein 6.7 gm/dl (6.0-8.3)
[2021-12-15] MEDS: ACETAMINOPHEN 500 MG TAB PO PRN ×2 (12:51→21:42)
[2021-12-15] MEDS: POTASSIUM CHLORIDE CRTAB 20 MEQ TABCR PO SCH ×3 (13:22→17:30)
--- NOTE | 2021-12-15 16:11 | Billing Data ---
Date of Service December 15, 2021 Coding Level of Care Code 72597 Subseq Hosp Care Lvl 3
[2021-12-15] MEDS: POLYETHYLENE (MIRALAX) 17 GM PACK PO SCH (20:25)
[2021-12-16 01:07] LABS: Codeine Urine NEGATIVE ng/mL (<50); Hydrocodone Urine NEGATIVE ng/mL (<50); Hydromor Urine 704 ng/mL (<50); Morphine Urine 3120 ng/mL (<50); Norhydrocodone Conf Ur NEGATIVE ng/mL (<50); Noroxycodone Urine NEGATIVE ng/mL (<50); Oxycodone Urine NEGATIVE ng/mL (<50); Oxymorph Urine NEGATIVE ng/mL (<50)
[2021-12-16] MEDS: LACTATED RINGER'S 1,000 ML IV SCH ×3 (02:57→11:24)
[2021-12-16] MEDS: ACETAMINOPHEN 500 MG TAB PO PRN (05:54)
[2021-12-16 06:10] LABS: Hemoglobin 14.4 g/dL (14.0-18.0); Mean Corpuscular Hemoglobin 31.4 pg (25-34); Mean Corpuscular Hgb Conc 34.3 g/dL (32-36); Mean Corpuscular Volume 91.5 fL (80-100); Mean Platelet Volume 10.6 fL (7.4-10.4); Platelet Count 151 K/uL (130-400); RDW Coefficient of Variation 12.3 % (11.5-14.5); RDW Standard Deviation 41.4 fL (36.4-46.3); Red Blood Count 4.59 M/uL (4.7-6.1); White Blood Count 12.48 K/uL (4.8-10.8)
[2021-12-16 06:25] LABS: BUN Creatinine Ratio 10.4 (10-20); Calcium 9.3 mg/dl (8.5-10.1); Creatinine Clr Calc Pharmacy 136.7 ml/min; Est GFR (African American) 121.8 ml/min; Est GFR (Non-African American) 105.1 ml/min; Potassium 3.8 mmol/L (3.5-5.1)
[2021-12-16] MEDS: FOLIC ACID 1 MG TAB PO SCH (07:20)
[2021-12-16] MEDS: THIAMINE HCL 100 MG in SYRINGE 9 ML IV SCH (07:20)
[2021-12-16] MEDS: POLYETHYLENE (MIRALAX) 17 GM PACK PO SCH ×2 (07:21→12:05)
[2021-12-16] MEDS: ENOXAPARIN INJ 40 MG/0.4 ML SYR SQ SCH (07:21)
[2021-12-16] MEDS: POTASSIUM CHLORIDE CRTAB 20 MEQ TABCR PO SCH ×3 (08:17→11:56)
--- NOTE | 2021-12-16 09:18 | Discharge Summary ---
Date of Service December 16, 2021 Admission HPI Per Admitting Provider Dougie Croft is a 51yo male with PMHx significant for tobacco use disorder (~40 pack years, current), severe alcohol use disorder and vitamin D deficiency who presented to [facility] ED on 12/13 for worsening epigastric abdominal pain radiating to upper back x3 days, with associated nausea. Patient denies previous episodes of similar symptoms in the past. Does admit to occasional heartburn which usually responds to TUMS or Pepcid. Of note patient has a history of severe alcohol use disorder although he reports that he "really cut down" ~3 years ago. Does admit to having 1 beer yesterday, although usually has only 1 beer per month nowadays. Also has previous history of cocaine and meth abuse but denies any drug use currently. Has a 40 pack year smoking history and currently smokes 1 pack per day. Does not take any medications besides for occasional Pepcid. Of note he has gained considerable weight over last 1-2 years and frequently has red meat; he did have a considerable amount of Bologna the day before his symp toms started. In the ED patient was mildly hypertensive and borderline tachycardic. Labs significant for elevated lipase 4661 and elevated amylase 1295, as well as WBC 12.07. BAL negative and no transaminitis. CT A/P with evidence of mild acute pancreatitis per [facility] report. In ED patient was given 1L NSS bolus as well as GI cocktail x1, Zofran 4mg IV x1 and Pepcid 20mg IV x1. Pain is still severe at 10/10 during my interview with the patient. Admission Exam (Per Admitting) Constitutional General: A&Ox3. In mild acute distress and grabbing at upper abdomen due to pain. HEENT: Atraumatic, normocephalic. Pulm: CTAB A&P. -wheezes, -rales, -rhonchi. Symmetrical chest rise. No increase work of breathing. No respiratory distress. Cardiac: RRR, -mrg. Radial pulses intact and symmetrical. Abdominal: soft, protuberant, significant epigastric tenderness without rebound or guarding. Negative Abdoul sign. Back: Negative House-Deras sign Skin: warm, dry, no rash Discharge Data Consultations 12/13/21 02:02 ED Decision to Admit Stat Hospital Course (1) Acute pancreatitis: Patient is a 51 y/o male with a history of tobacco use disorder and alcohol use disorder who presented to [facility] ED on 12/13 for worsening epigastric pain, admitted for evaluation and management of acute pancreatitis. 1. Acute Pancreatitis -Ct/abd pelvis confirmed mild acute pancreatitis, fatty infiltration of liver. Likely Secondary to alcohol use. - dicharged on full diet on 12/16 w/o n/v or abd pain. -Repeat imaging not warranted as suspicions for necrotizing pancreatitis is low. -WBC trending down. Slightly elevated to 12.48 at discharge. Recommend repeat CBC at post-hospital follow up with pcp. 2. Substance use disorder -Current tobacco use. Known history of severe alcohol use. Unclear if alcohol consumption history is reliable given inconsistence in date of last drink. -UDS: +opiates (from Dilaudid), negative THC, PCP, amphetamines, benzodiazepines, cocaine. BAL neg on admission. -Patient spoke enthusiastically about wanting to quit smoking and felt motivated since he was able to get through hospital stay w/o feeling the need/desire to smoke. Recommend discuss pharmacologic/nonpharmacologic options with PCP to decrease cravings and other nicotine withdrawal symptoms. - recommend continuing thiamine and folate outpatient if continuing to use alcohol All other medical conditions managed per home regimen (2) Dyspnea: (3) Substance use disorder: Supervising Physician Co-Signing Physician Notes chart reviewed, case d/w Karlie Coello MS2 and Dr Bliss R1 who also participated in care of this patient; [employer] d/w nursing as well. unfortunately due to miscommuncation over when i anticipated seeing him, patient was discharged prior to my personal evaluation. that said, appears totally reasonable/OK that he was discharged as above acute pancreatitis -EtOH vs idiopathic as most likely culprits (TG's low, and no elevation of AST/ALT/alk phos and no stone/ductal dilation on imaging to suggest stone disease) - discussed abstinence to reduce chance of recurrence -pain seemed to be shifting from pancreatic to intestinal - miralax/senna given questionable ongoing EtOH abuse -previously heavy, now really not clear. thiamine, folate. no s/s withdrawal. rec'd abstinence. DVT proph - lovenox otherwise as above, did appear that he was safe for home.
[2021-12-16] MEDS ORDERED: SENNA 8.6 MG TAB PO SCH (09:30)
[2021-12-16] MEDS: HYDROmorphone INJ 0.5 MG/0.5 ML SYR IV PRN (11:56)
== END 2021-12-16 12:37 | disposition home or self-care (01) | DRG 440 ==
LOC: ED 22:39 → SUATTDRO 12-13 02:17 → 3N 12-13 02:17